=== PATIENT | female | born 2000 | race African-American/Black ===

== ENCOUNTER 2019-02-03 16:35 | Emergency (ER) | payer OTHER ==
--- NOTE | 2019-02-03 18:17 | ED ---
Lower Extremity - HPI Summary HPI Summary: 18-year-old female presents with left foot injury today. States that she tripped over her foot. She has pain over fifth metatarsal. Denies any previous fracture. States that she is having difficulty placing weight on the area. Has no medical conditions. Hasn't taking anything for the pain. No ankle pain. No other injury. - History of Current Complaint Chief Complaint: EDExtremityLower Stated Complaint: FOOT INJURY PER PT Time Seen by Provider: 02/03/19 17:42 Pain Intensity: 4 - Allergies/Home Medications Allergies/Adverse Reactions: Allergies Allergy/AdvReac Type Severity Reaction Status Date / Time Penicillins Allergy Hives Verified 02/03/19 16:46 Home Medications: Home Medications NK [No Home Medications Reported] 02/03/19 [History Confirmed 02/03/19] PMH/Surg Hx/FS Hx/Imm Hx Endocrine/Hematology History: Denies: Hx Anticoagulant Therapy Respiratory History: Denies: Hx Asthma Infectious Disease History: No Infectious Disease History: Denies: Traveled Outside the [place] in Last 30 Days - Family History Known Family History: Positive: Non-Contributory - Social History Alcohol Use: Occasionally Substance Use Type: Reports: Marijuana Substance Use Comment - Amount & Last Used: 'occasional' Smoking Status (MU): Never Smoked Tobacco Review of Systems Negative: Fever Negative: Chest Pain Negative: Shortness Of Breath Positive: Myalgia - left foot pain All Other Systems Reviewed And Are Negative: Yes Physical Exam Triage Information Reviewed: Yes Vital Signs On Initial Exam: Initial Vitals Temp Pulse Resp BP Pulse Ox 98.5 F 77 16 105/81 98 02/03/19 16:43 02/03/19 16:43 02/03/19 16:43 02/03/19 16:43 02/03/19 16:43 Vital Signs Reviewed: Yes Appearance: Positive: Well-Appearing Skin: Positive: Warm, Dry Head/Face: Positive: Normal Head/Face Inspection Eyes: Positive: Normal, Conjunctiva Clear ENT: Positive: Pharynx normal Respiratory/Lung Sounds: Positive: Clear to Auscultation, Breath Sounds Present Cardiovascular: Positive: Normal, RRR Musculoskeletal: Positive: Strength/ROM Intact - left foot, Other - tenderness left 5th metatarsal, good pulses, sensation grossly intact Neurological: Positive: Normal Psychiatric: Positive: Normal Procedures - Sedation Patient Received Moderate/Deep Sedation with Procedure: No Diagnostics - Vital Signs Vital Signs Temp Pulse Resp BP Pulse Ox 02/03/19 16:43 98.5 F 77 16 105/81 98 - Laboratory Lab Statement: Any lab studies that have been ordered have been reviewed, and results considered in the medical decision making process. - Radiology foot Radiology Interpretation Completed By: Radiologist Summary of Radiographic Findings: IMPRESSION: Normal radiograph of the left foot. Lower Extremity Course/Dx - Course Course Of Treatment: 18-year-old female presents with left foot injury today. States that she tripped over her foot. She has pain over fifth metatarsal. Denies any previous fracture. States that she is having difficulty placing weight on the area. Has no medical conditions. Hasn't taking anything for the pain. No ankle pain. No other injury. On exam tenderness over fifth metatarsal. Neurovascularly intact. X-ray shows no fracture. Told to ice elevate. Patient understands and agrees with the plan. - Diagnoses Differential Diagnosis/HQI/PQRI: Positive: Fracture (Closed), Sprain, Strain Provider Diagnoses: Injury of left foot Discharge ED - Sign-Out/Discharge Documenting (check all that apply): Patient Departure - Discharge Plan Condition: Good Disposition: HOME Patient Education Materials: Foot Sprain (ED) Referrals: No Primary Care Phys,NOPCP [Primary Care Provider] - Additional Instructions: Wear hard sole shoes Ice, elevate Take Tylenol or ibuprofen for pain every 6 hours as needed [facility] Return to ED if develop or any new or worsening symptoms - Billing Disposition and Condition Condition: GOOD Disposition: Home - Attestation Statements Provider Attestation: I was available for consultation for this patient. I did not evaluate the patient or participate in any medical decision making or disposition decisions unless I am specifically named in the chart as having consulted on the patient. If I have consulted on the patient, please see my own ED note on the patient encounter. Krzysztof Child MD
[2019-02-03 20:28] VITALS: BP 113/75
== END 2019-02-03 18:36 | disposition home or self-care (01) ==
LOC: ED 16:35
DX: S99.922A Unspecified injury of left foot, initial encounter (principal); W18.49XA Other slipping, tripping and stumbling without falling, initial encounter; Y92.9 Unspecified place or not applicable; Z88.0 Allergy status to penicillin
CPT/HCPCS: 99282